=== PATIENT | male | born 1995 | race Two or more races ===

== ENCOUNTER 2017-02-13 01:45 | Emergency (ER) | payer OTHER ==
--- NOTE | 2017-02-13 02:19 | ED Physician Documentation ---
History of Present Illness - Stated complaint Stated Complaint: HEAD INJURY - Chief complaint Chief Complaint: Heent - History obtained from History obtained from: Patient (pt states that approx 6 hours ago he was hit in around the right eye by another players shoulder while playing basketball. no LOC, was able to continue to play. Here because when he was trying to go to sleep he did not feel right and had some neck pain.) Review of Systems Constitutional: denies: Fever, Chills Eyes: denies: Loss of vision, Decreased vision, Photophobia, Discharge, Irritation Ears: denies: Loss of hearing, Ear pain, Drainage/discharge, Tinnitus/ringing Nose: denies: Rhinorrhea / runny nose, Congestion, Epistaxis, Sinus pressure / pain, Foreign Body Throat: denies: Dental pain / toothache, Oral lesions / sores, Sore throat GI: denies: Nausea, Vomiting Skin: reports: Other (bruise under right eye) Musculoskeletal: reports: Neck pain Neurologic: reports: Head injury. denies: Focal weakness, Numbness, Altered mental status, Headache, LOC PD PAST MEDICAL HISTORY - Present Medications Home Medications: Ambulatory Orders Medication Instructions Recorded Confirmed No Known Home Medications [No 02/13/17 02/13/17 Known Home Medications] - Allergies Allergies/Adverse Reactions: Allergies Allergy/AdvReac Type Severity Reaction Status Date / Time No Known Drug Allergies Allergy Verified 02/13/17 01:56 PD ED PE NORMAL - Vitals Vital signs reviewed: Yes - General General: Alert and oriented X 3, No acute distress, Well developed/nourished, Other - HEENT HEENT: Atraumatic, PERRL, EOMI, Ears normal, Moist mucous membranes, Pharynx benign, Dentition benign - Neck Neck: Supple, no meningeal sign, No bony TTP, Other (TTP right paraspinal region ) - Cardiac Cardiac: RRR, No murmur - Respiratory Respiratory: No respiratory distress - Derm Derm: Other (bruising under the right eye ) - Neuro Neuro: Alert and oriented X 3, manager fashion 2-12 intact, No motor deficit, No sensory deficit, Normal speech Eye Opening: Spontaneous Motor: Obeys Commands Verbal: Oriented GCS Score: 15 - Psych Psych: Normal mood, Normal affect PD ED PE EXPANDED - HEENT HEENT: Other (no tenderness to the bridge of the nose) - Eyes Eyes: EOMI, Normal eyelids, Other (no step offs or tenderness on the orbital rims bilateral ). No: Unequal pupils, Eyelid swelling, Subconj hemorrhage Results - Vitals Vitals: Vital Signs - 24 hr 02/13/17 01:50 Temperature 36.8 C Heart Rate 80 Respiratory 16 Rate Blood Pressure 141/95 H O2 Saturation 98 Oxygen O2 Source Room air PD MEDICAL DECISION MAKING - ED course Complexity details: considered differential, d/w patient ED course: pt with bruising under the right eye. doubt orbital fracture, EOMI. no midline neck pain. cervical spine cleared by [facility]. discussed with the patient. will hold on radiologic studies. we discussed head injuries and concussion. he expressed understanding. 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 Ice your right eye. Return to the ER for any new or worsening symptoms.
[2017-02-13 02:31] VITALS: BP 130/78
== END 2017-02-13 02:31 | disposition home or self-care (01) ==
LOC: ED 01:45
DX: S00.11XA Contusion of right eyelid and periocular area, initial encounter (principal); W51.XXXA Accidental striking against or bumped into by another person, initial encounter; Y93.67 Activity, basketball; Y92.310 Basketball court as the place of occurrence of the external cause
CPT/HCPCS: 99283